=== PATIENT | male | born 1965 | race Caucasian/White ===

== ENCOUNTER 2018-08-22 11:04 | Outpatient (CLI) | payer OTHER ==
[~2018-08-22 11:04] MED LIST: ATOR10TA9 PO; MULT-516 PO; OMEP-110 PO
== END 2018-08-22 23:59 | disposition home or self-care (01) ==
LOC: CFH 11:04
PROVIDERS: ATTEND Family Medicine
DX: R51 Headache (principal)
CPT/HCPCS: 70450